=== PATIENT | male | born 1950 | race Caucasian/White ===

== ENCOUNTER 2024-01-17 11:27 | Emergency (ER) | payer OTHER, MEDICARE ==
[~2024-01-17] VITALS: Ht 175.3 cm; Wt 66.0 kg
[2024-01-17] MEDS ORDERED: ONDANSETRON 4MG ORAL DISINTEGRATING TAB PO PRN (12:50)
[2024-01-17] MEDS ORDERED: SUCRALFATE 1 GM TAB PO PRN (12:50)
[2024-01-17 13:45] LABS: HEMATOCRIT 40.3 % (42.0-52.0); HEMOGLOBIN 13.8 g/dl (13.5-17.5); MEAN CORPUSCULAR HEMOGLOBIN 30.9 pg (27.0-33.0); MEAN CORPUSCULAR HGB CONC 34.2 g/dl (32.0-36.5); MEAN CORPUSCULAR VOLUME 90.2 fl (80.0-96.0); PLATELET COUNT, AUTOMATED 398 10^3/uL (150-450); RED BLOOD COUNT 4.47 10^6/uL (4.30-6.10); WHITE BLOOD COUNT 8.7 10^3/uL (4.0-10.0)
[2024-01-17 14:09] LABS: ETHYL ALCOHOL (ETHANOL) < 0.003 % (0.000-0.010)
[2024-01-17 14:10] LABS: SALICYLATE LEVEL < 3.0 MG/DL (<30)
[2024-01-17 14:11] LABS: ALBUMIN 4.1 G/DL (3.2-5.2); ALKALINE PHOSPHATASE 114 U/L (46-116); ALT/SGPT 27 U/L (7.0-40); AST/SGOT 15 U/L (<34); BILIRUBIN,DIRECT 0.2 MG/DL (<0.4); BILIRUBIN,TOTAL 0.6 MG/DL (0.3-1.2); BLOOD UREA NITROGEN 13 MG/DL (9-23); CALCIUM LEVEL 9.5 MG/DL (8.3-10.6); CARBON DIOXIDE LEVEL 24 MMOL/L (20-31); CHLORIDE LEVEL 105 MMOL/L (98-107); CREATININE FOR GFR 0.72 MG/DL (0.70-1.30); GLOMERULAR FILTRATION RATE > 60.0 (>42); GLUCOSE, FASTING 95 MG/DL (74-106); POTASSIUM SERUM 4.6 MMOL/L (3.5-5.1); SODIUM LEVEL 137 MMOL/L (136-145); TOTAL PROTEIN 7.3 G/DL (5.7-8.2)
[2024-01-17 14:13] LABS: THYROID STIMULATING HORMONE 0.456 uIU/ML (0.55-4.78)
[2024-01-17 14:19] LABS: AMPHETAMINES LEVEL URINE NEGATIVE (NEGATIVE); BARBITURATES URINE NEGATIVE (NEGATIVE); BENZODIAZEPINES URINE NEGATIVE (NEGATIVE); COCAINE METABOLITE URINE NEGATIVE (NEGATIVE); METHADONE URINE NEGATIVE (NEGATIVE); OPIATES URINE NEGATIVE (NEGATIVE); PHENCYCLIDINE URINE NEGATIVE (NEGATIVE)
[2024-01-17 14:21] LABS: CANNABINOIDS URINE POSITIVE (NEGATIVE)
[2024-01-17] MEDS ORDERED: HYDR-3363 PO (14:44)
[2024-01-17] MEDS ORDERED: PEPC1TAB5 PO (14:44)
[2024-01-17] MEDS ORDERED: LISI10TA22 PO (14:44)
[2024-01-17 15:09] VITALS: BP 164/93; TEMP 98.9; O2SAT 97
== END 2024-01-17 15:11 | disposition home or self-care (01) ==
LOC: M ED 11:27
DX: F41.9 Anxiety disorder, unspecified (principal); F43.0 Acute stress reaction; I10 Essential (primary) hypertension; J44.9 Chronic obstructive pulmonary disease, unspecified; F17.200 Nicotine dependence, unspecified, uncomplicated; Z88.8 Allergy status to other drugs, medicaments and biological substances

== ENCOUNTER 2024-05-17 12:28 | Emergency (ER) | payer OTHER ==
[~2024-05-17] VITALS: Ht 175.3 cm; Wt 64.7 kg
[~2024-05-17 12:28] MED LIST: HYDR-3363 PO; LISI10TA22 PO; PEPC1TAB5 PO
[2024-05-17 15:28] LABS: BASO # 0.1 10^3/uL (0.0-0.2); BASO % 0.5 % (0.0-1.0); EOS % 0.4 % (0.0-3.0); HEMATOCRIT 40.8 % (42.0-52.0); HEMOGLOBIN 14.3 g/dl (13.5-17.5); LYMPH # 1.9 10^3/uL (1.5-5.0); LYMPH % 20.6 % (24.0-44.0); MEAN CORPUSCULAR HEMOGLOBIN 31.8 pg (27.0-33.0); MEAN CORPUSCULAR VOLUME 90.9 fl (80.0-96.0); MONO # 0.8 10^3/uL (0.0-0.8); MONO % 8.8 % (2.0-8.0); NEUTROPHILS # 6.3 10^3/uL (1.5-8.5); NEUTROPHILS % 69.4 % (36.0-66.0); PLATELET COUNT, AUTOMATED 352 10^3/uL (150-450); RED BLOOD COUNT 4.49 10^6/uL (4.30-6.10); WHITE BLOOD COUNT 9.1 10^3/uL (4.0-10.0)
[2024-05-17 15:35] LABS: AMPHETAMINES LEVEL URINE NEGATIVE (NEGATIVE)
[2024-05-17 15:36] LABS: BARBITURATES URINE NEGATIVE (NEGATIVE); BENZODIAZEPINES URINE NEGATIVE (NEGATIVE); COCAINE METABOLITE URINE NEGATIVE (NEGATIVE); METHADONE URINE NEGATIVE (NEGATIVE); OPIATES URINE NEGATIVE (NEGATIVE); PHENCYCLIDINE URINE NEGATIVE (NEGATIVE)
[2024-05-17 15:38] LABS: BLOOD UREA NITROGEN 14 MG/DL (9-23); CALCIUM LEVEL 9.4 MG/DL (8.3-10.6); CARBON DIOXIDE LEVEL 25 MMOL/L (20-31); CHLORIDE LEVEL 106 MMOL/L (98-107); CREATININE FOR GFR 0.83 MG/DL (0.70-1.30); GLOMERULAR FILTRATION RATE > 60.0 (>42); GLUCOSE, FASTING 74 MG/DL (74-106); POTASSIUM SERUM 4.5 MMOL/L (3.5-5.1); SODIUM LEVEL 138 MMOL/L (136-145)
[2024-05-17 15:38] LABS: CANNABINOIDS URINE POSITIVE (NEGATIVE)
[2024-05-17 15:47] LABS: HEPATITIS B SURFACE ANTIBODY POSITIVE (POSITIVE)
[2024-05-17 15:59] LABS: HEPATITIS B SURFACE ANTIGEN NEGATIVE (NEGATIVE)
[2024-05-17 16:12] LABS: HIV 1&2 SCREEN NEGATIVE (NEGATIVE)
[2024-05-17 16:20] LABS: HEPATITIS C VIRUS ABY INDEX 0.18 INDEX (<0.8)
[2024-05-17 16:28] LABS: Trichomonas vaginalis (AMP) NOT DETECTED (NEGATIVE)
[2024-05-17 16:52] LABS: GC DNA AMPLIFICATION NEGATIVE (NEGATIVE)
[2024-05-17] MEDS ORDERED: KETO2CR TOP (16:57)
[2024-05-17 17:08] VITALS: BP 149/76; TEMP 99.3; O2SAT 97
== END 2024-05-17 15:00 | disposition home or self-care (01) ==
LOC: M ED 12:28
DX: L30.4 Erythema intertrigo (principal); J44.9 Chronic obstructive pulmonary disease, unspecified; N40.0 Benign prostatic hyperplasia without lower urinary tract symptoms; M48.00 Spinal stenosis, site unspecified; F17.200 Nicotine dependence, unspecified, uncomplicated; Z79.899 Other long term (current) drug therapy; Z88.8 Allergy status to other drugs, medicaments and biological substances

== ENCOUNTER 2024-05-27 12:57 | Inpatient (IN) | payer OTHER ==
[~2024-05-27] VITALS: Ht 175.3 cm; Wt 61.5 kg
[~2024-05-27 12:57] MED LIST changes: +KETO2CR TOP
[2024-05-27 13:53] LABS: BASO # 0.1 10^3/uL (0.0-0.2); BASO % 0.5 % (0.0-1.0); EOS % 0.1 % (0.0-3.0); HEMATOCRIT 40.1 % (42.0-52.0); HEMOGLOBIN 13.7 g/dl (13.5-17.5); LYMPH # 1.2 10^3/uL (1.5-5.0); LYMPH % 9.6 % (24.0-44.0); MEAN CORPUSCULAR HEMOGLOBIN 31.4 pg (27.0-33.0); MEAN CORPUSCULAR HGB CONC 34.2 g/dl (32.0-36.5); MONO % 7.5 % (2.0-8.0); NEUTROPHILS # 10.6 10^3/uL (1.5-8.5); NEUTROPHILS % 82.1 % (36.0-66.0); PLATELET COUNT, AUTOMATED 379 10^3/uL (150-450); RED BLOOD COUNT 4.36 10^6/uL (4.30-6.10); WHITE BLOOD COUNT 12.9 10^3/uL (4.0-10.0)
[2024-05-27 15:03] LABS: BLOOD UREA NITROGEN 14 MG/DL (9-23); CALCIUM LEVEL 9.3 MG/DL (8.3-10.6); CARBON DIOXIDE LEVEL 23 MMOL/L (20-31); CHLORIDE LEVEL 104 MMOL/L (98-107); CREATININE FOR GFR 0.84 MG/DL (0.70-1.30); GLOMERULAR FILTRATION RATE > 60.0 (>42); GLUCOSE, FASTING 83 MG/DL (74-106); POTASSIUM SERUM 4.4 MMOL/L (3.5-5.1); SODIUM LEVEL 136 MMOL/L (136-145)
[2024-05-27] MEDS ORDERED: ISOVUE-370 76% 100ML VIAL As Ordered ONE (15:22)
[2024-05-27] MEDS: cefTRIAXone SOD 1 GM in DEXTROSE 5% (D5W) ADV/MINI-BAG 50 ML IV ONE (16:50)
[2024-05-27] MEDS ORDERED: MOM 30ML SUSPENSION UDC PO PRN (17:10)
[2024-05-27] MEDS ORDERED: MAALOX 30 ML SUSP *UDC PO PRN (17:10)
[2024-05-27] MEDS ORDERED: ACETAMINOPHEN 325 MG TAB PO PRN (17:10)
[2024-05-27] MEDS ORDERED: LYRI200C PO (17:23)
[2024-05-27] MEDS ORDERED: HYDR50TA70 PO (17:23)
[2024-05-27] MEDS ORDERED: HOME MED LIST COMPLETE! XX SCH (17:25)
[2024-05-27 17:40] LABS: C REACTIVE PROTEIN QUANTITATIV 3.54 MG/DL (<1.0)
[2024-05-27] MEDS: VANCOMYCIN/WATER FOR INJ (PEG) 1,250 MG in IV 1 EA IV ONE (17:42)
[2024-05-27] MEDS: amLODIPine 5 MG TAB PO ONE (17:43)
[2024-05-27 18:01] LABS: ERYTHROCYTE SEDIMENTATION RATE 59 mm/hr (0-20)
[2024-05-27] MEDS: HEPARIN SOD (PORCINE) 5000UNITS/ML 1ML VIAL/SYRINGE SC SCH (19:57)
[2024-05-27] MEDS: metroNIDAZOLE 500 MG in IV 1 EA IV ONE (19:57)
[2024-05-27 21:30] VITALS: BP 145/83; TEMP 97.8; O2SAT 97
[2024-05-28] MEDS: VANCOMYCIN 1,000MG/200 ML IV BAG IV SCH (02:37)
[2024-05-28] MEDS: hydrOXYzine 50 MG TAB PO PRN (03:13)
[2024-05-28 04:00] VITALS: BP 116/59; TEMP 97.7; O2SAT 97
[2024-05-28 06:27] LABS: BASO # 0.1 10^3/uL (0.0-0.2); BASO % 0.6 % (0.0-1.0); EOS # 0.1 10^3/uL (0.0-0.5); HEMATOCRIT 39.7 % (42.0-52.0); HEMOGLOBIN 13.5 g/dl (13.5-17.5); LYMPH # 1.4 10^3/uL (1.5-5.0); LYMPH % 17.5 % (24.0-44.0); MEAN CORPUSCULAR HEMOGLOBIN 31.6 pg (27.0-33.0); MONO # 0.7 10^3/uL (0.0-0.8); MONO % 9.3 % (2.0-8.0); NEUTROPHILS # 5.5 10^3/uL (1.5-8.5); NEUTROPHILS % 71.3 % (36.0-66.0); PLATELET COUNT, AUTOMATED 377 10^3/uL (150-450); RED BLOOD COUNT 4.27 10^6/uL (4.30-6.10); WHITE BLOOD COUNT 7.7 10^3/uL (4.0-10.0)
[2024-05-28 07:00] LABS: C REACTIVE PROTEIN QUANTITATIV 3.72 MG/DL (<1.0)
[2024-05-28 08:10] VITALS: BP 139/71; TEMP 97.8; O2SAT 98
[2024-05-28] MEDS: cefTRIAXone SOD 2 GM in DEXTROSE 5% (D5W) ADV/MINI-BAG 50 ML IV SCH (08:11)
[2024-05-28] MEDS: PREGABALIN 50 MG CAP (LYRICA) PO SCH (08:11)
[2024-05-28 10:23] LABS: BLOOD UREA NITROGEN 14 MG/DL (9-23); CALCIUM LEVEL 9.2 MG/DL (8.3-10.6); CARBON DIOXIDE LEVEL 23 MMOL/L (20-31); CHLORIDE LEVEL 107 MMOL/L (98-107); CREATININE FOR GFR 0.75 MG/DL (0.70-1.30); GLOMERULAR FILTRATION RATE > 60.0 (>42); GLUCOSE, FASTING 81 MG/DL (74-106); POTASSIUM SERUM 4.3 MMOL/L (3.5-5.1); SODIUM LEVEL 137 MMOL/L (136-145)
[2024-05-28 13:30] VITALS: BP 154/89; TEMP 97.9; O2SAT 97
[2024-05-28] MEDS ORDERED: PREGABALIN 100 MG CAP (LYRICA) PO SCH (14:16)
[2024-05-28 20:38] VITALS: BP 137/76; TEMP 97.7; O2SAT 96
[2024-05-28] MEDS: PREGABALIN 100 MG CAP (LYRICA) PO SCH (21:30)
[2024-05-29 04:56] VITALS: BP 131/85; TEMP 97.5
[2024-05-29 08:23] LABS: BLOOD UREA NITROGEN 12 MG/DL (9-23); C REACTIVE PROTEIN QUANTITATIV 2.19 MG/DL (<1.0); CALCIUM LEVEL 9.1 MG/DL (8.3-10.6); CARBON DIOXIDE LEVEL 23 MMOL/L (20-31); CHLORIDE LEVEL 106 MMOL/L (98-107); CREATININE FOR GFR 0.72 MG/DL (0.70-1.30); GLOMERULAR FILTRATION RATE > 60.0 (>42); GLUCOSE, FASTING 93 MG/DL (74-106); POTASSIUM SERUM 4.4 MMOL/L (3.5-5.1); SODIUM LEVEL 136 MMOL/L (136-145)
[2024-05-29 08:33] VITALS: BP 136/83
[2024-05-29] MEDS: LIDOCAINE 5% (LIDODERM) PATCH TD SCH (08:33)
[2024-05-29 12:00] VITALS: BP 139/74; TEMP 97.5; O2SAT 95
[2024-05-29] MEDS ORDERED: DOXY-440 PO (13:50)
[2024-05-29] MEDS ORDERED: LIDO5TD TD (13:50)
[2024-05-29] MEDS ORDERED: AMLO1TAB25 PO (13:50)
[2024-05-29] MEDS ORDERED: PROBCAP14 PO (13:53)
== END 2024-05-29 15:35 | disposition home or self-care (01) | DRG 730 ==
LOC: EDBD 12:57 → M ED 12:57 → EEVIPCON 17:10 → M ED INP 17:10 → M PED 21:30 → M MS5PR 05-28 13:25
PROVIDERS: ADMIT Student in an Organized Health Care Education/Training Program; ATTEND Student in an Organized Health Care Education/Training Program
DX: N50.82 Scrotal pain (principal); J44.9 Chronic obstructive pulmonary disease, unspecified; K21.9 Gastro-esophageal reflux disease without esophagitis; N40.0 Benign prostatic hyperplasia without lower urinary tract symptoms; F32.A Depression, unspecified; F41.9 Anxiety disorder, unspecified; F17.210 Nicotine dependence, cigarettes, uncomplicated; I10 Essential (primary) hypertension; M25.532 Pain in left wrist; Z79.899 Other long term (current) drug therapy; Z88.8 Allergy status to other drugs, medicaments and biological substances

== ENCOUNTER 2024-10-01 20:09 | Inpatient (IN) | payer OTHER, MEDICARE ==
[~2024-10-01] VITALS: Ht 172.7 cm; Wt 59.4 kg
[~2024-10-01 20:09] MED LIST changes: +AMLO1TAB25 PO; +DOXY-440 PO; +HYDR50TA70 PO; +LIDO5TD TD; +LYRI200C PO; +PROBCAP14 PO
[2024-10-01] MEDS: NS (Normal Saline) 0.9% 1,000 ML IV ONE (21:08)
[2024-10-01 21:31] LABS: BASO # 0.1 10^3/uL (0.0-0.2); BASO % 0.4 % (0.0-1.0); EOS # 0.1 10^3/uL (0.0-0.5); EOS % 1.1 % (0.0-3.0); HEMATOCRIT 38.1 % (42.0-52.0); HEMOGLOBIN 13.1 g/dl (13.5-17.5); LYMPH # 1.1 10^3/uL (1.5-5.0); LYMPH % 9.3 % (24.0-44.0); MEAN CORPUSCULAR HEMOGLOBIN 31.2 pg (27.0-33.0); MEAN CORPUSCULAR HGB CONC 34.4 g/dl (32.0-36.5); MEAN CORPUSCULAR VOLUME 90.7 fl (80.0-96.0); MONO % 8.1 % (2.0-8.0); NEUTROPHILS # 9.8 10^3/uL (1.5-8.5); NEUTROPHILS % 80.7 % (36.0-66.0); PLATELET COUNT, AUTOMATED 354 10^3/uL (150-450); WHITE BLOOD COUNT 12.2 10^3/uL (4.0-10.0)
[2024-10-01 21:52] LABS: CK-MB VALUE MASS < 1.0 NG/ML (<3.6)
[2024-10-01 21:53] LABS: C REACTIVE PROTEIN QUANTITATIV 0.86 MG/DL (<1.0); CPK CREATINE PHOSPHOKINASE 79 U/L (46-171); MB/CK RELATIVE INDEX 1.26 (< OR =4)
[2024-10-01 21:54] LABS: ALBUMIN 3.7 G/DL (3.2-5.2); ALKALINE PHOSPHATASE 102 U/L (40-129); ALT/SGPT 24 U/L (7.0-40); AST/SGOT 13 U/L (<34); BILIRUBIN,TOTAL 0.3 MG/DL (0.3-1.2); BLOOD UREA NITROGEN 22 MG/DL (9-23); CALCIUM LEVEL 9.5 MG/DL (8.3-10.6); CARBON DIOXIDE LEVEL 30 MMOL/L (20-31); CHLORIDE LEVEL 106 MMOL/L (98-107); CREATININE FOR GFR 1.13 MG/DL (0.70-1.30); GLOMERULAR FILTRATION RATE 68.6 (>42); GLUCOSE, FASTING 101 MG/DL (74-106); MAGNESIUM LEVEL 2.1 MG/DL (1.8-2.4); PHOSPHORUS LEVEL 4.3 MG/DL (2.4-5.1); SODIUM LEVEL 143 MMOL/L (136-145)
[2024-10-01] MEDS: KETOROLAC 30 MG/ML 1ML VIAL IV ONE (22:22)
[2024-10-01 22:38] LABS: THYROID STIMULATING HORMONE 1.196 uIU/ML (0.55-4.78)
[2024-10-02] VITALS (7 sets, daily range): BP systolic 107–140; BP diastolic 58–72; TEMP 97.7–98.2; O2SAT 96–98
[2024-10-02] MEDS ORDERED: MAALOX 30 ML SUSP *UDC PO PRN (00:30)
[2024-10-02] MEDS ORDERED: ACETAMINOPHEN 325 MG TAB PO PRN (00:30)
[2024-10-02] MEDS ORDERED: MOM 30ML SUSPENSION UDC PO PRN (00:30)
[2024-10-02] MEDS ORDERED: NICOTINE 14 MG/24 HR TRANSDERMAL TD PRN (00:30)
[2024-10-02] MEDS: NS (Normal Saline) 0.9% 1,000 ML IV SCH (02:08)
[2024-10-02] MEDS: DOCUSATE SODIUM 100MG CAPSULE PO SCH (09:23)
[2024-10-02] MEDS ORDERED: NORV5TAB PO (12:59)
[2024-10-02] MEDS ORDERED: LIDO5DIS41 TD (12:59)
[2024-10-02] MEDS ORDERED: HOME MED LIST COMPLETE! XX SCH (13:00)
[2024-10-02] MEDS ORDERED: LISI10TA22 PO (13:08)
== END 2024-10-02 14:39 | disposition home or self-care (01) | DRG 312 ==
LOC: M ED 20:09 → M ED INP 23:41 → M MSPAV 10-02 02:49
PROVIDERS: ADMIT Family Medicine; ATTEND Internal Medicine Nephrology
PROC: B246ZZZ Ultrasonography of Right and Left Heart (ICD-10-PCS; principal; 2024-10-02)
DX: I95.1 Orthostatic hypotension (principal); J44.9 Chronic obstructive pulmonary disease, unspecified; I10 Essential (primary) hypertension; K21.9 Gastro-esophageal reflux disease without esophagitis; N40.0 Benign prostatic hyperplasia without lower urinary tract symptoms; F43.10 Post-traumatic stress disorder, unspecified; F41.9 Anxiety disorder, unspecified; F32.A Depression, unspecified; F17.210 Nicotine dependence, cigarettes, uncomplicated; R06.02 Shortness of breath; M54.2 Cervicalgia; R11.0 Nausea; Z79.899 Other long term (current) drug therapy; Z86.14 Personal history of Methicillin resistant Staphylococcus aureus infection; Z88.8 Allergy status to other drugs, medicaments and biological substances

== ENCOUNTER 2025-01-23 23:18 | Emergency (ER) | payer MEDICARE, OTHER ==
[~2025-01-23] VITALS: Ht 175.3 cm; Wt 61.5 kg
[~2025-01-23 23:18] MED LIST changes: +LIDO1ADH93 TD; +NORV5TAB PO
[2025-01-24] MEDS: ONDANSETRON 4MG 2ML VIAL IV ONE (00:10)
[2025-01-24] MEDS: MORPHINE 2 MG/ML 1 ML VIAL IV ONE (00:10)
[2025-01-24] MEDS: ACETAMINOPHEN *IV* 1,000 MG in IV 1 EA IV ONE (00:39)
[2025-01-24 00:51] LABS: BASO # 0.1 10^3/uL (0.0-0.2); BASO % 0.6 % (0.0-1.0); EOS # 0.2 10^3/uL (0.0-0.5); EOS % 2.1 % (0.0-3.0); LYMPH # 1.7 10^3/uL (1.5-5.0); LYMPH % 19.1 % (24.0-44.0); MONO # 0.7 10^3/uL (0.0-0.8); MONO % 8.0 % (2.0-8.0); NEUTROPHILS # 6.2 10^3/uL (1.5-8.5); NEUTROPHILS % 69.9 % (36.0-66.0); PLATELET COUNT, AUTOMATED 341 10^3/uL (150-450)
[2025-01-24] MEDS ORDERED: ISOVUE-370 76% 100 ML VIAL As Ordered ONE (00:56)
[2025-01-24] MEDS: PERCOCET 5MG/325MG TAB PO ONE (01:06)
[2025-01-24] MEDS: OXYCODONE/APAP 5MG/325MG(HOME DOSE PACK) PO ONE (02:30)
[2025-01-24] MEDS ORDERED: PERC5TAB12 PO (02:33)
[2025-01-24 03:31] VITALS: BP 127/71; TEMP 97.3; O2SAT 97
== END 2025-01-24 04:03 | disposition home or self-care (01) ==
LOC: M ED 23:18
DX: S42.214A Unspecified nondisplaced fracture of surgical neck of right humerus, initial encounter for closed fracture (principal); M47.812 Spondylosis without myelopathy or radiculopathy, cervical region; V00.841A Fall from standing electric scooter, initial encounter; Y92.410 Unspecified street and highway as the place of occurrence of the external cause; Y93.89 Activity, other specified; Y99.9 Unspecified external cause status; I10 Essential (primary) hypertension; F41.9 Anxiety disorder, unspecified; F17.200 Nicotine dependence, unspecified, uncomplicated; Z79.899 Other long term (current) drug therapy; Z88.8 Allergy status to other drugs, medicaments and biological substances
CPT/HCPCS: 70450; 71260; 72125; 73000; 73030; 73070; 80047; 82077; 85025; 96374; 96375; 99284; J0131; J2405; Q9967

== ENCOUNTER → 2025-02-04 | Outpatient (CLI) | payer OTHER ==
[~2025-02-04] MED LIST changes: +PERC5TAB12 PO
== END ==
LOC: M SOG 11:27
PROVIDERS: ATTEND Orthopaedic Surgery
DX: M25.511 Pain in right shoulder (principal); S42.231D 3-part fracture of surgical neck of right humerus, subsequent encounter for fracture with routine healing

== ENCOUNTER → 2025-02-18 | Outpatient (CLI) | payer OTHER | LOC: M SOG 06:52 | PROVIDERS: ATTEND Orthopaedic Surgery | DX: S42.214A Unspecified nondisplaced fracture of surgical neck of right humerus, initial encounter for closed fracture (principal); Z53.9 Procedure and treatment not carried out, unspecified reason ==